=== PATIENT | female | born 1995 | race Caucasian/White ===

== ENCOUNTER 2018-09-11 12:52 | Outpatient (CLI) | payer OTHER, SELFPAY ==
[2018-09-11 13:46] LABS: Abs Immature Grans 0.02 k/cumm (0.0-0.09); Absolute Basophil Count 0.02 k/cumm (0.0-0.2); Absolute Eosinophil Count 0.05 k/cumm (0.0-0.7); Absolute Lymphocyte Count 2.31 k/cumm (1.2-3.4); Absolute Monocyte Count 0.55 k/cumm (0.11-0.7); Absolute Neutrophil Count 5.54 k/cumm (1.2-6.7); Basophils % 0.2; Eosinophils % 0.6; HCT 40.3 % (36.0-46.0); HGB 13.9 g/dL (12.0-15.5); Immature Grans % 0.2; Lymphocytes % 27.2; Mean Corp. HGB Concentration 34.5 g/dL (32.0-36.0); Mean Corpuscular Hemoglobin 30.7 pg (27.0-33.0); Mean Platelet Volume 10.5 fL (8.0-11.0); Monocytes % 6.5; Neutrophils % 65.3; Platelet Count 193 x1000/uL (130-400); RBC 4.53 m/cumm (4.00-5.20); White Blood Cell Count 8.49 k/cumm (4.4-10.8)
[2018-09-11 14:47] LABS: ESR 8 MM/HR (0-20)
[2018-09-11 15:19] LABS: ALT 17 U/L (12-78); AST 14 U/L (15-37); Albumin 3.7 g/dL (3.4-5.0); Alkaline Phosphatase 53 U/L (46-116); BUN 13 mg/dL (7-18); Bilirubin, Total 1.7 mg/dL (0.2-1.0); CREATININE 0.71 mg/dL (0.55-1.02); Calcium 8.9 mg/dL (8.5-10.1); Chloride 103 mmol/L (98-107); Glucose 85 mg/dL (70-100); Sodium 140 mmol/L (136-145); Total Protein 6.9 g/dL (6.4-8.2)
[2018-09-12 08:59] LABS: Bilirubin, Direct 0.28 mg/dL (0.00-0.20)
[2018-09-12 09:46] LABS: HCG Qual (Urine) Negative
[2018-09-12 10:24] LABS: IgA 134 mg/dL (85-499)
[2018-09-12 10:35] LABS: HIV-1/2 Ag & Ab Screen Negative (NEGAT)
[2018-09-12 13:07] LABS: Chlamydia Result Negative; GC Result Negative; Specimen Description URINE
[2018-09-12 23:24] LABS: Tissue Transglutaminase Ab IgA <1.2 U/mL
== END 2018-09-11 13:12 ==
PROVIDERS: PCP Pediatrics; Visit Provider Nurse Practitioner Pediatrics
DX: R11.2 Nausea with vomiting, unspecified (principal); Z11.4 Encounter for screening for human immunodeficiency virus [HIV]; Z11.3 Encounter for screening for infections with a predominantly sexual mode of transmission
CPT/HCPCS: 36415; 80053; 82784; 85652; 87389; 87491; 87591; 81025; 82248; 83516; 85025

== ENCOUNTER 2019-12-23 13:21 | Outpatient (REF) | payer OTHER, SELFPAY ==
--- NOTE | 2019-12-23 13:15 | PAPFT_PTH ---
PATIENT: Andreia Ramirez LOC: [facility]#:[id number] AGE/SX: 24/F ROOM: RE12/23/[address]: Consuelo Rice : 1995 BED: DIS: 12/23/2019 SPEC #: [id number] RECD: 12/24/19 10:21 STATUS: OLAYINKA REShahnaz #: [id number] ELSA: 12/23/19 13:[address]: Consuelo Rice [facility] RECD BY: Niurka Tompkins ENTERED: 12/24/19 10:22 SP TYPE: PAPFT OTHR DR: Erinn Day Tissues: 1 - CX/ENDOCX FOR PAP SMEARS Procedures: PAP THIN PREP/[facility] Screening Comments: [id number]
== END 2019-12-23 13:41 ==
LOC: NCHCN 13:21
PROVIDERS: Visit Provider Nurse Practitioner Community Health
DX: Z12.4 Encounter for screening for malignant neoplasm of cervix (principal)
CPT/HCPCS: 88142

== ENCOUNTER 2020-03-16 18:32 | Outpatient (REF) | payer OTHER, SELFPAY ==
[2020-03-19 16:45] LABS: Patient Race White; SARS-CoV-2 RNA Undetected (Undetected); SARS-CoV-2 Specimen Source Nasal
== END 2020-03-16 18:52 ==
LOC: NCHCN 18:32
PROVIDERS: Visit Provider Nurse Practitioner Community Health
DX: Z20.828 Contact with and (suspected) exposure to other viral communicable diseases (principal)
CPT/HCPCS: U0003

== ENCOUNTER 2020-08-20 19:09 | Outpatient (REF) | payer OTHER, SELFPAY | END 2020-08-20 19:10 | disposition home or self-care (01) | LOC: NCHCN 19:09 | PROVIDERS: Visit Provider Family Medicine | DX: J02.9 Acute pharyngitis, unspecified (principal) | CPT/HCPCS: 87081 ==

== ENCOUNTER 2020-10-22 10:29 | Outpatient (REF) | payer OTHER, SELFPAY ==
[2020-10-23 15:22] LABS: COVID-19 RT-PCR UVMMC Result Negative (Negative)
== END 2020-10-22 10:30 | disposition home or self-care (01) ==
LOC: NCHCN 10:29
PROVIDERS: Visit Provider Nurse Practitioner Community Health
DX: J02.9 Acute pharyngitis, unspecified (principal); Z20.822 Contact with and (suspected) exposure to COVID-19
CPT/HCPCS: U0003; 87070

== ENCOUNTER 2021-01-04 14:37 | Outpatient (REF) | payer OTHER, SELFPAY ==
[2021-01-06 10:28] LABS: HIV-1/2 Ag & Ab Screen Negative (Negative)
[2021-01-06 13:41] LABS: Chlamydia Result Negative (Negative); GC Result Negative (Negative)
== END 2021-01-04 14:38 | disposition home or self-care (01) ==
LOC: NCHCN 14:37
PROVIDERS: Referring Provider Nurse Practitioner Community Health; Visit Provider Nurse Practitioner Community Health
DX: Z11.3 Encounter for screening for infections with a predominantly sexual mode of transmission (principal); Z11.4 Encounter for screening for human immunodeficiency virus [HIV]
CPT/HCPCS: 87389; 87491; 87591

== ENCOUNTER 2022-11-15 19:13 | Outpatient (REF) | payer OTHER, SELFPAY ==
--- NOTE | 2022-11-15 14:30 | PAPFT_PTH ---
PATIENT: Andreia Ramirez LOC: [facility] U#:[id number] AGE/SX: 27/F ROOM: RE11/15/[address]: POLLY: 1995 BED: DIS: 11/15/2022 SPEC #: [id number] RECD: 11/16/22 12:56 STATUS: OLAYINKA LENNON #: [id number] ELSA: 11/15/22 14:[address]: Tiara [place] DEPT: [facility], [facility]–1983 Cytology RECD BY: Jaylene Bennett ENTERED: 11/16/22 12:56 SP TYPE: PAPFT DON DR: Erinn Local Tissues: 1 - CX/ENDOCX FOR PAP SMEARS Procedures: PAP THIN PREP/[facility] Screening HPV DNA PROBE Comments: [id number]
[2022-11-17 09:51] LABS: HBs Antibody, Quant 14.1 mIU/mL (See Note); Hepatitis B Surface Ab Positive (See Note)
[2022-11-17 10:33] LABS: Syphilis Serology (RPR) Negative (Negative)
[2022-11-17 10:57] LABS: HIV-1/2 Ag & Ab Screen Negative (Negative)
[2022-11-17 12:20] LABS: Hepatitis C Ab w Rflx HCV PCR Reactive (Negative)
[2022-11-17 13:23] LABS: GC Result Negative (Negative)
[2022-11-17 16:18] LABS: Specimen Description VAGINAL
[2022-11-17 16:21] LABS: Chlamydia Result Positive (Negative)
[2022-11-18 12:23] LABS: HCV RNA Qualitative Undetected (Undetected)
== END 2022-11-15 19:14 | disposition home or self-care (01) ==
LOC: NCHCN 19:13
PROVIDERS: Visit Provider Family Medicine
DX: Z00.00 Encounter for general adult medical examination without abnormal findings (principal); Z11.51 Encounter for screening for human papillomavirus (HPV); Z12.4 Encounter for screening for malignant neoplasm of cervix; Z11.3 Encounter for screening for infections with a predominantly sexual mode of transmission; L29.8 Other pruritus
CPT/HCPCS: 86706; 86803; 87389; 87491; 87522; 87591; 88142; 86592; 87480; 87510; 87624; 87660